=== PATIENT | male | born 1965 | race American Indian/Alaskan Native ===

== ENCOUNTER 2016-04-18 10:48 | Emergency (ER) | payer MEDICAID ==
[2016-04-18 11:40] VITALS: BP 133/97
== END 2016-04-18 21:18 | disposition left against medical advice (07) ==
LOC: ED 10:48
DX: K08.89 Other specified disorders of teeth and supporting structures (principal); R22.0 Localized swelling, mass and lump, head; Z53.21 Procedure and treatment not carried out due to patient leaving prior to being seen by health care provider